=== PATIENT | male | born 2000 | race Caucasian/White ===

== ENCOUNTER 2024-03-21 16:23 | Emergency (ER) | payer MEDICAID, SELFPAY ==
[2024-03-21 16:24] VITALS: BMI 33.4
[2024-03-21 16:33] VITALS: BP 164/100; PULSE 96; RESP 20; TEMP 36.6; O2SAT 96
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
[2024-03-21] MEDS: HYDROcodone/APAP 5/325 TABLET 1 TAB PO (17:01)
[2024-03-21] MEDS: DIPHTH,PERTUSS(ACELL),TET VAC 0.5 ML VIAL IMi (17:01)
--- NOTE | 2024-03-21 20:36 | PC.NURSE ---
NO ANSWER AT ER LOBBY OR OUTSIDE ER TO BE RE EVALUATED.
== END 2024-03-21 20:38 | disposition left against medical advice (07) ==
PROVIDERS: Emergency Provider Emergency Medicine; PCP Family Medicine
DX: S59.902A Unspecified injury of left elbow, initial encounter (principal); S59.912A Unspecified injury of left forearm, initial encounter; S09.90XA Unspecified injury of head, initial encounter; S29.9XXA Unspecified injury of thorax, initial encounter; S39.91XA Unspecified injury of abdomen, initial encounter; M54.2 Cervicalgia; V86.56XA Driver of dirt bike or motor/cross bike injured in nontraffic accident, initial encounter; Z23 Encounter for immunization; Z53.29 Procedure and treatment not carried out because of patient's decision for other reasons
CPT/HCPCS: 70450; 71250; 72125; 73080; 73090; 74176; 90471; 90715; 99281; A9270